=== PATIENT | male | born 1995 | race Caucasian/White ===

== ENCOUNTER 2016-06-10 13:34 | Emergency (ER) | payer BC, OTHER ==
[2016-06-10 13:58] VITALS: BP 121/90; PULSE 106; TEMP 97.8; BMI 23.1
--- NOTE | 2016-06-10 13:58 | EDPRACDOC ---
- General Information Stated Complaint: rt elbow pain Time Seen by Provider: 06/10/16 13:55 Information Source: Patient Home Medications: Home Medications Hydrocodone Bit/Acetaminophen [Hydrocodon-Acetaminophen 5-325] 1 tab PO Q4H PRN #15 tab 06/10/16 Ketorolac Tromethamine [Toradol] 10 mg PO Q6H PRN #20 tab 06/10/16 Allergies/Adverse Reactions: Allergies Allergy/AdvReac Type Severity Reaction Status Date / Time No Known Allergies Allergy Verified 06/10/16 13:55 - History of Present Illness Onset: 2-3 DAYS HPI: PT STATES PLAYING BASKETBALL FELL BACKWARDS CAUGHT SELF WITH RIGHT ARM/HAND NOW C/O RIGHT UPPER ARM BRUISING SWELLING AND PAIN NEXT TO THE ELBOW. DECREASED STRENGTH IN RIGHT ARM WELL. Location: Reports: Other (BICEP REGION) Dominant Side: Reports: Right Mechanism: Reports: FOOSH, Hyperextension Circumstances: Reports: Playing (BASKETBALL) Relevant History: Reports: None Tetanus Up To Date?: No Pain Severity: Reports: Mild Ability to Move Elbow: Limited (D/T PAIN) Associated Signs and Symptoms: Reports: Swelling (BRUISING), Arm Pain ED Past Medical History - History Reviewed Yes Nurses notes reviewed and agree except as marked Travel Outside of [place] in the Last 3 Months?: No - Social Medical History Smoking Status: Heavy tobacco smoker (5 or more cigarettes/day or daily pipe/ cigar) ETOH: None Substance Abuse: None Lives With: Other Lives In: Home EDM Review of Systems - Review of Systems ROS Negative Except as Marked: Yes All systems reviewed and were negative except as marked Constitutional: No Symptoms Reported. negative: Fever, Chills, Weakness, Fatigue, Loss of Appetite Eyes: No Symptoms Reported. negative: Redness, Blurred Vision, Double Vision, Discharge, Pain, Light Sensitive, Photophobia Ears: No Symptoms Reported. negative: Pain, Hearing Loss, Drainage, Ear Pulling Throat: No Symptoms Reported. negative: Pain, Swelling Nose: No Symptoms Reported. negative: Congestion, Bleeding, Discharge, Injection, Swelling, Deformity, Ecchymosis, Tender, Abrasion, Laceration Mouth: No Symptoms Reported. negative: Pain, Drooling Respiratory: No Symptoms Reported. negative: Cough, Brassy Cough, Barky Cough, Shortness of Breath, Wheezing, Hemoptysis Cardiovascular: No Symptoms Reported. negative: Chest Pain, Palpitations, Syncope, Edema, Orthopnea, PND, Skin Mottling, Cyanosis Gastrointestinal: No Symptoms Reported. negative: Pain, Constipation, Nausea, Vomiting, Diarrhea, Melena, Formula Intolerance Genitourinary: No Symptoms Reported. negative: Dysuria, Hematuria, Frequency, Discharge, Bleeding, Testicular Pain, Neurological: No Symptoms Reported. negative: Headache, Dizziness, Seizure, Numbness, Weakness, Speech Difficulty, Gait Difficulty Musculoskeletal: Arm (RT UPPER ARM). negative: Ankle, Back, Chestwall, Elbow, Forearm, Femur, Foot, Hand, Hip, Knee, Leg, Neck, Pelvis, Ribs, Shoulder, Wrist Integumentary: Bruising (AND SWELLING OF BICEP ON RIGHT). negative: Itching, Rash, Wound Allergic/Immunologic: No Symptoms Reported. negative: Hives, Itching Hematologic: No Symptoms Reported. negative: Lymphadenopathy, Easy Bruising, Easy Bleeding Endocrine: No Symptoms Reported. negative: Weight Gain, Weight Loss Psychiatric: No Symptoms Reported. negative: Anxiety, Depression, Hallucinations, Insomnia, Suicidal - Physical Exam Constitutional: No apparent distress, Alert (Awake) Oriented to: Time, Person, Place Last recorded Vital Signs: Oxygen Pulse Oxygen Saturation O2 Device Oxygen Flow Rate Fraction of Inspired Oxygen ( FIO2) - HEENT Head: Normal ( normocephalic) Eye Exam: Normal (PERRL, EOMI, Sclera white) Oropharynx: Normal (Pharynx:Moist without exudate,Gums-no swelling) Tympanic Membrane: Normal ENT EAC: Normal TMJ: Normal Nose: No Symptoms Reported (septum midline) Neck: Normal (FROM, trachea at midline) - Respiratory/Cardiovascular Respiratory: Normal - CTA (BBS clear to auscultation without adventitious sounds ) Cardiovascular: Normal (RRR without murmur, gallop or rub) - GI Auscultation: Normal (NABS) Palpation: Normal (Soft,No rebound or guarding, non distended) Tenderness: Non tender Fagan's Sign: Negative - Bladder: Normal - Musculoskeletal Back: Normal (Non-Tender) Extremities: Normal (Normal tone, Pulses 2+ No cyanosis or edema, FROM) Musculoskeletal Comment: DECREASED STRENGTH OF BICEPS MUSCLE ON RIGHT WHEN COMPARED TO LEFT. NVI FULL ROM BUT PAINFUL - Integumentary Skin: Normal, Warm, Dry, Other (BRUISING AND SWELLING OF RIGHT BICEP REGION OF ARM) Lymphatics: Normal (no adenopathy) - Neurologic Memory Impaired: Normal Motor Function: Normal (Normal tone, Pulses 2+ No cyanosis or edema, FROM) Cranial Nerve: Normal (CN II-X11 intact sensation, strength 5/5) Cerebellar: Normal Mood Description: Normal Perception: Normal ED Elbow Problem Exam - Musculoskeletal Elbow Symptoms: Swelling (MILD) Shoulder Symptoms: Normal Arm Symptoms: Swelling, Mild Tenderness, Other (BRUISING) Forearm Symptoms: Normal Wrist Symptoms: Normal Distal Function/Circulation: Normal - Integumentary Skin: Ecchymosis Lymphatics: Normal ED Procedures - Splinting RT ARM Location: RT Pre-Proc Neuro Vasc Exam: normal Post-Proc Neuro Vasc Exam: normal Other Devices: Sling (RT) - Differential Diagnosis Contusion, Other (RIGHT BICEPS MUSCLE TEAR, MUSCLE STRAIN. LIGAMENT INJURY) - Diagnostic Imaging ELBOW Image interpreted by: Radiologist IMPRESSION: No acute abnormality. Decision Time to Discharge: 14:46 - Departure Disposition: Home Condition: Stable Final Diagnosis: Tear of right biceps muscle Qualifiers: Encounter type: initial encounter Qualified Code(s): S46.111A - Strain of muscle, fascia and tendon of long head of biceps, right arm, initial encounter Instructions: RICE: Routine Care for Injuries Education/Counseling Given To: Patient Education/Counseling Given Regarding: Diagnosis, Treatment, Prognosis, Follow Up Referrals: Sergio Zamora MD [Staff Physician] - One Week Prescriptions: Hydrocodone Bit/Acetaminophen [Hydrocodon-Acetaminophen 5-325] 1 tab PO Q4H PRN #15 tab PRN Reason: Pain Ketorolac Tromethamine [Toradol] 10 mg PO Q6H PRN #20 tab PRN Reason: Pain Additional Instructions: RICE.
[2016-06-10] MEDS ORDERED: KETOROLAC TROMETHAMINE 10 MG TAB PO ONE (14:01)
--- NOTE | 2016-06-10 14:27 | DIRPT ---
CLINICAL DATA: Fell backwards with swelling and bruising in the medial right elbow. EXAM: RIGHT ELBOW - COMPLETE 3+ VIEW COMPARISON: None. FINDINGS: There is no evidence of fracture, dislocation, or joint effusion. There is no evidence of arthropathy or other focal bone abnormality. Soft tissues are unremarkable. IMPRESSION: No acute abnormality. Electronically Signed By: Aleksandr Armstrong M.D. On: 06/10/2016 14:25
== END 2016-06-10 15:00 | disposition home or self-care (01) ==
LOC: EDMC 13:34
DX: S46.111A Strain of muscle, fascia and tendon of long head of biceps, right arm, initial encounter (principal); W19.XXXA Unspecified fall, initial encounter; Y93.67 Activity, basketball; F17.200 Nicotine dependence, unspecified, uncomplicated
CPT/HCPCS: 29105; 73080; 99283; J3490